=== PATIENT | female | born 1930 | race African-American/Black ===

== ENCOUNTER 2016-11-12 17:14 | Emergency (ER) | payer MEDICARE, BC ==
[~2016-11-12] VITALS: Ht 157.5 cm; Wt 90.9 kg
[~2016-11-12 17:14] MED LIST: CLOPIDOGREL75 MG PO; COUMADIN7.5 MG PO; D31000 UNIT PO; DIAZEPAM5 M1 PO; GABAPENTIN300 MG PO; LOSARTAN POT50 MG PO; METOPROL TAR100 MG PO; METOPROL TAR25 MG PO; MIDODRINE HCL5 MG PO; MOBIC7.5 M1 PO; NEPHRO-VIT1 PO; PROAMATINE10 MG PO; RENO PO; ROPINIROLE0.5 MG PO; SENNA8.6 MG PO; SENSIPAR30 MG PO; TRAMADOL HCL50 MG PO; VITAMIN D31000 UNI1 PO; VITAMIN D3400 UNI2 PO
[2016-11-12 18:09] LABS: INFLUENZA A NONE DETECTED (NONE DETECT); INFLUENZA B NONE DETECTED (NONE DETECT)
[2016-11-12 22:29] LABS: HEMATOCRIT 31.3 % (37.0-47.0); HEMOGLOBIN 10.7 g/dl (12.0-16.0); IMMATURE GRANULOCYTES 0.6 % (0.0-1.0); MEAN CELL VOLUME 87.4 fL CALC (80.0-100.0); MEAN CORPUSCULAR HGB 29.9 pG CALC (26.0-32.0); MEAN CORPUSCULAR HGB CONC 34.2 g/L CALC (32.0-36.0); NEUT# 5.54 thou/uL (2.00-7.15); RED BLOOD COUNT 3.58 mill/uL (4.20-5.60); RED CELL DISTRI WIDTH 17.5 % (11.5-15.5)
[2016-11-12 22:47] LABS: ALBUMIN 3.4 g/dL (3.2-5.0); BILIRUBIN, TOTAL 1.1 mg/dL (0.0-1.4); CALCIUM 9.1 mg/dL (8.4-10.2); POTASSIUM 4.5 mmol/l (3.5-5.1); TOTAL PROTEIN 6.8 g/dL (6.3-8.2)
[2016-11-12 22:53] LABS: CREATININE 6.2 mg/dL (0.5-1.0)
[2016-11-12 23:24] LABS: INTERNATIONAL NORMALIZED RATIO 1.3 RATIO (0.7-1.3); PROTHROMBIN TIME 14.4 SECONDS (9.0-12.5)
[2016-11-13 01:10] VITALS: BP 116/52
== END 2016-11-13 01:10 ==
LOC: ED 17:14
PROVIDERS: Emergency Medicine
PROC: 02HV33Z Insertion of Infusion Device into Superior Vena Cava, Percutaneous Approach (ICD-10-PCS; principal; 2016-11-12)
DX: R79.89 Other specified abnormal findings of blood chemistry (principal); R50.9 Fever, unspecified; I95.9 Hypotension, unspecified; R53.1 Weakness; R05 Cough; R06.02 Shortness of breath